=== PATIENT | male | born 1955 | race Caucasian/White ===

== ENCOUNTER → 2019-03-08 | Outpatient (CLI) | payer OTHER | LOC: CAT 10:52 | DX: Z13.6 Encounter for screening for cardiovascular disorders (principal); E78.00 Pure hypercholesterolemia, unspecified; I25.10 Atherosclerotic heart disease of native coronary artery without angina pectoris ==

== ENCOUNTER → 2020-07-23 | Outpatient (CLI) | payer BC | LOC: SJCVCIMAG 08:44 | PROVIDERS: ATTEND Internal Medicine Cardiovascular Disease | DX: R09.89 Other specified symptoms and signs involving the circulatory and respiratory systems (principal); R93.1 Abnormal findings on diagnostic imaging of heart and coronary circulation; E78.2 Mixed hyperlipidemia; Z72.0 Tobacco use ==